=== PATIENT | female | born 1965 | race African-American/Black ===

== ENCOUNTER 2018-11-02 10:04 | Inpatient (IN) | payer MEDICARE, OTHER ==
[~2018-11-02] VITALS: Ht 170.2 cm; Wt 85.7 kg
[~2018-11-02 10:04] MED LIST: ALBU05; ASPI-1158; CARV3.1242; FLUT1DIS IH; NIFE30TA23; OMEP20CA5 PO; PANT20TA3
[2018-11-02] MEDS ORDERED: MAGNESIUM 2 G PREMIX 50 ML IV STA (10:24)
[2018-11-02] MEDS ORDERED: METHYLPREDNISOLONE SOD SUCC 125 MG/2 ML VIAL IV STA (10:24)
[2018-11-02] MEDS ORDERED: ALBUTEROL (0.083%) 2.5MG/3ML NEB HHN STA ×2 (10:24→11:48)
[2018-11-02] MEDS ORDERED: IPRATROPIUM BROMIDE (0.02%) 0.5MG/2.5ML NEB HHN STA ×2 (10:24→11:48)
[2018-11-02 11:14] LABS: BASOPHILS % 0.4 % (0.0-2.0); EOSINOPHILS % 1.7 % (0.0-5.0); HEMATOCRIT. 43.7 % (36.0-48.0); HEMOGLOBIN. 13.8 g/dL (12.0-16.0); LYMPHOCYTES % 18.8 % (20.0-50.0); MEAN CORPUSCULAR HEMOGLOBIN 26.4 pg (28.0-32.0); MEAN CORPUSCULAR VOLUME 83.5 fL (81.0-99.0); MEAN PLATELET VOLUME 8.5 fl (7.4-10.4); MONOCYTES % 9.4 % (2.0-8.0); NEUTROPHILS % 69.7 % (40.0-76.0); PLATELET 221 x1000/uL (130-400); RED BLOOD CELL COUNT 5.23 mill/uL (4.2-5.4); RED CELL DISTRIBUTION WIDTH 14.4 % (11.6-14.6)
[2018-11-02] MEDS ORDERED: LEVOFLOXACIN 500MG PREMIX 100 ML IV ONE (11:15)
[2018-11-02 11:20] LABS: CHLORIDE 99 mEq/L (98-107)
[2018-11-02 11:21] LABS: PARTIAL THROMBOPLASTIN TIME 38.5 sec (23.4-31.0); PROTHROMBIN TIME 10.5 sec (9.6-11.0)
[2018-11-02] MEDS ORDERED: IPRATROPIUM/ALBUTEROL 0.5-3(2.5)MG/3ML NEB INH PRN (11:45)
[2018-11-02] MEDS ORDERED: GUAIFENESIN 200MG/10ML SUGAR FREE UDC PO PRN (11:45)
[2018-11-02] MEDS ORDERED: HYDROCODONE/ACETAMINOPHEN 5/325MG TABLET PO PRN (11:45)
[2018-11-02] MEDS ORDERED: MAGNESIUM/ALUMINUM HYDROXIDE/SIMETHICONE 30ML UDC PO PRN (11:45)
[2018-11-02] MEDS ORDERED: DIPHENHYDRAMINE 50MG/ML VIAL IV PRN (11:45)
[2018-11-02] MEDS ORDERED: CLONIDINE 0.1MG TABLET PO PRN (11:45)
[2018-11-02] MEDS ORDERED: NA PHOS,M-B/NA PHOS,DI-BA ENEMA 118ML PR PRN (11:45)
[2018-11-02] MEDS ORDERED: DOCUSATE SODIUM 100MG CAPSULE PO PRN (11:45)
[2018-11-02] MEDS ORDERED: MORPHINE SULFATE 2 MG/ML CPJ (NOT FOR IM USE) IV PRN (11:45)
[2018-11-02] MEDS ORDERED: ACETAMINOPHEN 325MG TABLET PO PRN (11:45)
[2018-11-02 12:45] VITALS: BP 127/69
[2018-11-02 16:00] VITALS: BP 141/59
[2018-11-02] MEDS: ASPIRIN 81MG EC TABLET PO SCH (16:05)
[2018-11-02] MEDS: METHYLPREDNISOLONE SOD SUCC 40 MG/ML VIAL IV SCH (16:05)
[2018-11-02] MEDS: NIFEDIPINE XL 30MG TAB PO SCH (16:05)
[2018-11-02] MEDS: ENOXAPARIN 40MG/0.4ML SYR SUBCUT SCH (16:06)
[2018-11-02] MEDS: IPRATROPIUM/ALBUTEROL 0.5-3(2.5)MG/3ML NEB HHN SCH ×2 (16:40→20:38)
[2018-11-02 16:43] LABS: CHLORIDE 98 mEq/L (98-107)
[2018-11-02] MEDS ORDERED: MELA10TA SL (16:58)
[2018-11-02] MEDS ORDERED: ALBU18HF2 IH (16:58)
[2018-11-02] MEDS ORDERED: FLUT1DIS3 INH (16:58)
[2018-11-02] MEDS ORDERED: PANT40TA4 PO (16:58)
[2018-11-02] MEDS ORDERED: DILT240C92 MT (16:58)
[2018-11-02] MEDS ORDERED: MAGN500C4 PO (16:58)
[2018-11-02] MEDS ORDERED: CYCL10TA7 PO (16:58)
[2018-11-02] MEDS ORDERED: POTA2TAB18 PO (16:58)
[2018-11-02] MEDS ORDERED: MV-M1TAB57 PO (16:58)
[2018-11-02] MEDS ORDERED: METHYLPREDNISOLONE SOD SUCC 125 MG/2 ML VIAL IV SCH (18:00)
[2018-11-02] MEDS: CYCLOBENZAPRINE 10MG TABLET PO PRN (19:39)
[2018-11-02 20:00] VITALS: BP 125/72
[2018-11-02] MEDS: LORAZEPAM 2MG/ML CPJ IV PRN (21:16)
[2018-11-02] MEDS: GUAIFENESIN 600MG ER TABLET PO SCH (21:16)
[2018-11-03] VITALS (11 sets, daily range): BP systolic 112–163; BP diastolic 58–93
[2018-11-03] MEDS: METHYLPREDNISOLONE SOD SUCC 40 MG/ML VIAL IV SCH ×3 (00:25→17:22)
[2018-11-03] MEDS: IPRATROPIUM/ALBUTEROL 0.5-3(2.5)MG/3ML NEB HHN SCH ×6 (00:34→20:07)
[2018-11-03] MEDS: CYCLOBENZAPRINE 10MG TABLET PO PRN ×2 (05:02→17:27)
[2018-11-03 07:12] LABS: BASOPHILS % 0.1 % (0.0-2.0); HEMATOCRIT. 45.7 % (36.0-48.0); HEMOGLOBIN. 14.3 g/dL (12.0-16.0); LYMPHOCYTES % 9.4 % (20.0-50.0); MEAN CORPUSCULAR HEMOGLOBIN 26.8 pg (28.0-32.0); MEAN CORPUSCULAR VOLUME 85.4 fL (81.0-99.0); NEUTROPHILS % 87.5 % (40.0-76.0); PLATELET 182 x1000/uL (130-400); RED BLOOD CELL COUNT 5.36 mill/uL (4.2-5.4); RED CELL DISTRIBUTION WIDTH 14.6 % (11.6-14.6)
[2018-11-03 07:52] LABS: CHLORIDE 98 mEq/L (98-107)
[2018-11-03 07:59] LABS: LDL CHOLESTEROL 62 mg/dL (5-100)
[2018-11-03 08:00] LABS: HDL CHOLESTEROL 83 mg/dL (40-59)
[2018-11-03] MEDS: ASPIRIN 81MG EC TABLET PO SCH (09:23)
[2018-11-03] MEDS: GUAIFENESIN 600MG ER TABLET PO SCH ×2 (09:24→20:46)
[2018-11-03] MEDS: ENOXAPARIN 40MG/0.4ML SYR SUBCUT SCH (09:24)
[2018-11-03] MEDS: NIFEDIPINE XL 30MG TAB PO SCH (09:24)
[2018-11-03] MEDS ORDERED: LEVOFLOXACIN 500MG PREMIX 100 ML IV SCH (11:00)
[2018-11-03] MEDS ORDERED: METHYLPREDNISOLONE SOD SUCC 125 MG/2 ML VIAL IV NR (13:15)
[2018-11-03] MEDS: DILTIAZEM HCL 180MG CAPSULE CD 24HR PO SCH (13:24)
[2018-11-03 13:54] LABS: BG BASE EXCESS 4.6 mmol/L (-2.0-2.0); BG CARBOXYHEMOGLOBIN 0.5 % (0.5-1.5); BG DEOXYHEMOGLOBIN 7.5 % (0.0-5.0); BG FRACTION INSPIRED OXYGEN 32; BG METHEMOGLOBIN 0.3 % (0.0-1.5); BG OXYGEN SATURATION 92.4 % (92.0-98.5); BG OXYHEMOGLOBIN 91.7 % (94.0-97.0); BG PCO2 59.8 mmHg (35.0-45.0); BG PH 7.346 (7.350-7.450); BG PO2 67.7 mmHg (75.0-100.0); BG SAMPLE SITE RIGHT BRACHIAL; BG TOTAL HEMOGLOBIN 13.8 g/dL (12.0-18.0); BG VENT MODE NASAL CANNULA
[2018-11-03] MEDS: LORAZEPAM 2MG/ML CPJ IV PRN (20:46)
[2018-11-03] MEDS ORDERED: LORAZEPAM 2MG/ML CPJ IV NR (21:30)
[2018-11-03 21:57] LABS: BG BASE EXCESS 2.6 mmol/L (-2.0-2.0); BG BILEVEL POS AIRWAY PRESSURE 15/5; BG CARBOXYHEMOGLOBIN 0.6 % (0.5-1.5); BG DEOXYHEMOGLOBIN 3.6 % (0.0-5.0); BG FRACTION INSPIRED OXYGEN 40; BG HCO3 ACT 32.8 mmol/L (22.0-26.0); BG METHEMOGLOBIN 0.5 % (0.0-1.5); BG OXYGEN SATURATION 96.4 % (92.0-98.5); BG OXYHEMOGLOBIN 95.3 % (94.0-97.0); BG PCO2 79.3 mmHg (35.0-45.0); BG PH 7.234 (7.350-7.450); BG PO2 96.9 mmHg (75.0-100.0); BG SAMPLE SITE RIGHT RADIAL; BG TOTAL HEMOGLOBIN 14.5 g/dL (12.0-18.0); BG VENT MODE MASK - BIPAP
[2018-11-03] MEDS: PROPOFOL 10MG/ML 100ML 100 ML IV PRN (23:04)
[2018-11-04] VITALS (94 sets, daily range): BP systolic 104–148; BP diastolic 19–96
[2018-11-04] MEDS ORDERED: IPRATROPIUM/ALBUTEROL 0.5-3(2.5)MG/3ML NEB HHN SCH
[2018-11-04 00:10] LABS: BG DEOXYHEMOGLOBIN 0.5 % (0.0-5.0); BG FRACTION INSPIRED OXYGEN 60; BG HCO3 ACT 27.7 mmol/L (22.0-26.0); BG METHEMOGLOBIN 0.5 % (0.0-1.5); BG OXYGEN SATURATION 99.5 % (92.0-98.5); BG PCO2 52.7 mmHg (35.0-45.0); BG PH 7.338 (7.350-7.450); BG PO2 298.7 mmHg (75.0-100.0); BG SAMPLE SITE RIGHT BRACHIAL; BG TIDAL VOLUME(mL) 500 mL; BG TOTAL HEMOGLOBIN 13.4 g/dL (12.0-18.0); BG VENT MODE VENT - A/C; BG VENT RATE 18 set
[2018-11-04] MEDS ORDERED: ETOMIDATE 2MG/ML 10ML VIAL IV ONE (00:15)
[2018-11-04] MEDS ORDERED: SUCCINYLCHOLINE CHLORIDE 200MG/10ML IV ONE (00:15)
[2018-11-04] MEDS: IPRATROPIUM/ALBUTEROL 0.5-3(2.5)MG/3ML NEB HHN SCH ×6 (00:36→20:14)
[2018-11-04] MEDS: METHYLPREDNISOLONE SOD SUCC 40 MG/ML VIAL IV SCH ×4 (00:55→23:00)
[2018-11-04] MEDS: DEXT 5%/0.45% NACL 1000ML 1,000 ML IV SCH ×3 (00:56→22:00)
[2018-11-04] MEDS: PROPOFOL 10MG/ML 100ML 100 ML IV PRN ×5 (02:52→22:54)
[2018-11-04 05:55] LABS: BASOPHILS % 0.1 % (0.0-2.0); HEMATOCRIT. 37.9 % (36.0-48.0); HEMOGLOBIN. 12.1 g/dL (12.0-16.0); LYMPHOCYTES % 8.1 % (20.0-50.0); MEAN CORPUSCULAR HEMOGLOBIN 26.6 pg (28.0-32.0); MEAN CORPUSCULAR VOLUME 83.4 fL (81.0-99.0); MEAN PLATELET VOLUME 9.5 fl (7.4-10.4); MONOCYTES % 8.9 % (2.0-8.0); NEUTROPHILS % 82.9 % (40.0-76.0); PLATELET 190 x1000/uL (130-400); RED BLOOD CELL COUNT 4.55 mill/uL (4.2-5.4); RED CELL DISTRIBUTION WIDTH 14.4 % (11.6-14.6)
[2018-11-04 05:57] LABS: CHLORIDE 97 mEq/L (98-107)
[2018-11-04 07:09] LABS: BG BASE EXCESS 8.2 mmol/L (-2.0-2.0); BG CARBOXYHEMOGLOBIN 0.5 % (0.5-1.5); BG DEOXYHEMOGLOBIN 2.6 % (0.0-5.0); BG HCO3 ACT 34.1 mmol/L (22.0-26.0); BG METHEMOGLOBIN 0.3 % (0.0-1.5); BG OXYGEN SATURATION 97.4 % (92.0-98.5); BG OXYHEMOGLOBIN 96.6 % (94.0-97.0); BG PCO2 52.7 mmHg (35.0-45.0); BG PH 7.429 (7.350-7.450); BG PO2 93.4 mmHg (75.0-100.0); BG SAMPLE SITE RIGHT BRACHIAL; BG TIDAL VOLUME(mL) 500 mL; BG TOTAL HEMOGLOBIN 13.1 g/dL (12.0-18.0); BG VENT MODE VENT - A/C; BG VENT RATE 18 set
[2018-11-04] MEDS: ASPIRIN 81MG EC TABLET PO SCH (08:11)
[2018-11-04] MEDS: ENOXAPARIN 40MG/0.4ML SYR SUBCUT SCH (08:11)
[2018-11-04] MEDS: GUAIFENESIN 600MG ER TABLET PO SCH ×2 (08:12→20:27)
[2018-11-04] MEDS: DILTIAZEM HCL 180MG CAPSULE CD 24HR PO SCH (08:12)
[2018-11-04] MEDS: FAMOTIDINE 20MG/2ML VIAL IV SCH ×2 (10:46→20:27)
[2018-11-04] MEDS: LEVOFLOXACIN 500MG PREMIX 100 ML IV SCH (11:48)
[2018-11-05] VITALS (90 sets, daily range): BP systolic 116–162; BP diastolic 46–104
[2018-11-05] MEDS: IPRATROPIUM/ALBUTEROL 0.5-3(2.5)MG/3ML NEB HHN SCH ×7 (00:03→23:14)
[2018-11-05] MEDS: PROPOFOL 10MG/ML 100ML 100 ML IV PRN ×5 (03:41→21:28)
[2018-11-05] MEDS: LORAZEPAM 2MG/ML CPJ IV PRN (08:51)
[2018-11-05] MEDS: DILTIAZEM HCL 180MG CAPSULE CD 24HR PO SCH (09:00)
[2018-11-05] MEDS: DEXT 5%/0.45% NACL 1000ML 1,000 ML IV SCH ×2 (09:07→16:58)
[2018-11-05] MEDS: ASPIRIN 81MG EC TABLET PO SCH (09:11)
[2018-11-05] MEDS: GUAIFENESIN 600MG ER TABLET PO SCH ×2 (09:11→21:24)
[2018-11-05] MEDS: FAMOTIDINE 20MG/2ML VIAL IV SCH ×2 (09:12→21:27)
[2018-11-05] MEDS: ENOXAPARIN 40MG/0.4ML SYR SUBCUT SCH (09:12)
[2018-11-05] MEDS: ONDANSETRON HCL 4MG/2ML INJ IV PRN (09:12)
[2018-11-05] MEDS: METHYLPREDNISOLONE SOD SUCC 40 MG/ML VIAL IV SCH ×2 (09:13→16:58)
[2018-11-05] MEDS: ASPIRIN 81MG TABLET NG SCH (10:00)
[2018-11-05] MEDS: LEVOFLOXACIN 500MG PREMIX 100 ML IV SCH (10:02)
[2018-11-05] MEDS ORDERED: DOCUSATE SODIUM SUGAR FREE 100MG/10ML UDC NG PRN (10:15)
[2018-11-05 13:10] LABS: BG BASE EXCESS 6.4 mmol/L (-2.0-2.0); BG CARBOXYHEMOGLOBIN 0.3 % (0.5-1.5); BG DEOXYHEMOGLOBIN 0.9 % (0.0-5.0); BG HCO3 ACT 30.7 mmol/L (22.0-26.0); BG METHEMOGLOBIN 0.5 % (0.0-1.5); BG OXYGEN SATURATION 99.1 % (92.0-98.5); BG OXYHEMOGLOBIN 98.3 % (94.0-97.0); BG PCO2 42.8 mmHg (35.0-45.0); BG PH 7.474 (7.350-7.450); BG PO2 153.4 mmHg (75.0-100.0); BG SAMPLE SITE RIGHT BRACHIAL; BG TIDAL VOLUME(mL) 500 mL; BG VENT MODE VENT - A/C; BG VENT RATE 16 set
[2018-11-06] VITALS (96 sets, daily range): BP systolic 102–198; BP diastolic 63–148
[2018-11-06] MEDS: METHYLPREDNISOLONE SOD SUCC 40 MG/ML VIAL IV SCH ×3 (00:47→18:47)
[2018-11-06] MEDS: PROPOFOL 10MG/ML 100ML 100 ML IV PRN ×4 (02:40→20:32)
[2018-11-06] MEDS: DEXT 5%/0.45% NACL 1000ML 1,000 ML IV SCH ×2 (02:44→13:04)
[2018-11-06] MEDS: IPRATROPIUM/ALBUTEROL 0.5-3(2.5)MG/3ML NEB HHN SCH ×4 (04:22→16:22)
[2018-11-06 05:32] LABS: BASOPHILS % 0.1 % (0.0-2.0); HEMATOCRIT. 37.7 % (36.0-48.0); HEMOGLOBIN. 12.1 g/dL (12.0-16.0); LYMPHOCYTES % 7.6 % (20.0-50.0); MEAN CORPUSCULAR HEMOGLOBIN 26.6 pg (28.0-32.0); MEAN PLATELET VOLUME 9.7 fl (7.4-10.4); MONOCYTES % 8.6 % (2.0-8.0); NEUTROPHILS % 83.7 % (40.0-76.0); PLATELET 172 x1000/uL (130-400); RED BLOOD CELL COUNT 4.55 mill/uL (4.2-5.4); RED CELL DISTRIBUTION WIDTH 14.4 % (11.6-14.6)
[2018-11-06 05:47] LABS: CHLORIDE 102 mEq/L (98-107)
[2018-11-06 07:34] LABS: BG BASE EXCESS 6.3 mmol/L (-2.0-2.0); BG CARBOXYHEMOGLOBIN 0.3 % (0.5-1.5); BG DEOXYHEMOGLOBIN 1.4 % (0.0-5.0); BG FRACTION INSPIRED OXYGEN 35; BG HCO3 ACT 30.7 mmol/L (22.0-26.0); BG METHEMOGLOBIN 0.4 % (0.0-1.5); BG OXYGEN SATURATION 98.6 % (92.0-98.5); BG OXYHEMOGLOBIN 97.9 % (94.0-97.0); BG PCO2 43.3 mmHg (35.0-45.0); BG PH 7.468 (7.350-7.450); BG PO2 132.4 mmHg (75.0-100.0); BG SAMPLE SITE RIGHT BRACHIAL; BG TIDAL VOLUME(mL) 500 mL; BG TOTAL HEMOGLOBIN 13.2 g/dL (12.0-18.0); BG VENT MODE VENT - A/C; BG VENT RATE 16 set
[2018-11-06] MEDS: FAMOTIDINE 20MG/2ML VIAL IV SCH ×2 (08:57→20:31)
[2018-11-06] MEDS: GUAIFENESIN 600MG ER TABLET PO SCH ×2 (08:57→20:27)
[2018-11-06] MEDS: ASPIRIN 81MG TABLET NG SCH (08:57)
[2018-11-06] MEDS: ENOXAPARIN 40MG/0.4ML SYR SUBCUT SCH (08:58)
[2018-11-06] MEDS: DILTIAZEM HCL 180MG CAPSULE CD 24HR PO SCH (08:58)
[2018-11-06] MEDS: LEVOFLOXACIN 500MG PREMIX 100 ML IV SCH (11:19)
[2018-11-06] MEDS: AZITHROMYCIN 500 MG in DEXT 5% WATER 250 ML IV SCH (13:03)
[2018-11-07] VITALS (93 sets, daily range): BP systolic 83–164; BP diastolic 45–86
[2018-11-07] MEDS: DEXT 5%/0.45% NACL 1000ML 1,000 ML IV SCH ×3 (01:00→19:05)
[2018-11-07] MEDS: METHYLPREDNISOLONE SOD SUCC 40 MG/ML VIAL IV SCH ×2 (01:00→08:46)
[2018-11-07] MEDS: IPRATROPIUM/ALBUTEROL 0.5-3(2.5)MG/3ML NEB HHN SCH ×6 (01:17→20:37)
[2018-11-07] MEDS: PROPOFOL 10MG/ML 100ML 100 ML IV PRN ×2 (02:15→07:45)
[2018-11-07] MEDS: FAMOTIDINE 20MG/2ML VIAL IV SCH ×2 (08:46→20:21)
[2018-11-07] MEDS: GUAIFENESIN 600MG ER TABLET PO SCH ×2 (08:46→20:21)
[2018-11-07] MEDS: ASPIRIN 81MG TABLET NG SCH (08:47)
[2018-11-07] MEDS: DILTIAZEM HCL 180MG CAPSULE CD 24HR PO SCH (08:47)
[2018-11-07] MEDS: ENOXAPARIN 40MG/0.4ML SYR SUBCUT SCH (08:47)
[2018-11-07] MEDS: LEVOFLOXACIN 500MG PREMIX 100 ML IV SCH (10:57)
[2018-11-07] MEDS: FENTANYL CITRATE/PF 500 MCG in SODIUM CHLORIDE 0.9% 40 ML IV PRN ×2 (12:40→18:38)
[2018-11-07] MEDS: MIDAZOLAM HCL 50 MG in DEXTROSE 5% WATER 40 ML IV PRN (12:45)
[2018-11-07] MEDS: AZITHROMYCIN 500 MG in DEXT 5% WATER 250 ML IV SCH (13:46)
[2018-11-07] MEDS ORDERED: NOREPINEPHRINE 8 MG in DEXT 5% WATER 250 ML IV PRN (22:16)
[2018-11-08] VITALS (94 sets, daily range): BP systolic 84–158; BP diastolic 49–100
[2018-11-08] MEDS: IPRATROPIUM/ALBUTEROL 0.5-3(2.5)MG/3ML NEB HHN SCH ×6 (00:40→20:30)
[2018-11-08] MEDS: MIDAZOLAM HCL 50 MG in DEXTROSE 5% WATER 40 ML IV PRN ×2 (01:31→21:02)
[2018-11-08] MEDS: DEXT 5%/0.45% NACL 1000ML 1,000 ML IV SCH ×2 (04:28→14:56)
[2018-11-08 05:44] LABS: MEAN CORPUSCULAR HEMOGLOBIN 26.5 pg (28.0-32.0); MEAN PLATELET VOLUME 10.2 fl (7.4-10.4); PLATELET 171 x1000/uL (130-400); RED BLOOD CELL COUNT 4.53 mill/uL (4.2-5.4); RED CELL DISTRIBUTION WIDTH 14.6 % (11.6-14.6)
[2018-11-08 06:07] LABS: CHLORIDE 105 mEq/L (98-107)
[2018-11-08 07:51] LABS: BG BASE EXCESS 6.3 mmol/L (-2.0-2.0); BG CARBOXYHEMOGLOBIN 0.1 % (0.5-1.5); BG DEOXYHEMOGLOBIN 1.7 % (0.0-5.0); BG FRACTION INSPIRED OXYGEN 35; BG HCO3 ACT 32.6 mmol/L (22.0-26.0); BG METHEMOGLOBIN 0.2 % (0.0-1.5); BG OXYGEN SATURATION 98.3 % (92.0-98.5); BG PCO2 54.6 mmHg (35.0-45.0); BG PH 7.394 (7.350-7.450); BG PO2 121.8 mmHg (75.0-100.0); BG PRESSURE SUPPORT 14; BG SAMPLE SITE RIGHT BRACHIAL; BG TIDAL VOLUME(mL) 550 mL; BG TOTAL HEMOGLOBIN 12.5 g/dL (12.0-18.0); BG VENT MODE VENT - SIMV; BG VENT RATE 12 set
[2018-11-08] MEDS ORDERED: ACETAMINOPHEN 650MG/20.3ML UDC NG PRN (08:00)
[2018-11-08] MEDS: GUAIFENESIN 600MG ER TABLET PO SCH (09:00)
[2018-11-08] MEDS: ASPIRIN 81MG TABLET NG SCH ×2 (09:00→13:09)
[2018-11-08] MEDS: DILTIAZEM HCL 180MG CAPSULE CD 24HR PO SCH (09:00)
[2018-11-08] MEDS: ENOXAPARIN 40MG/0.4ML SYR SUBCUT SCH (09:00)
[2018-11-08] MEDS: FAMOTIDINE 20MG/2ML VIAL IV SCH ×2 (09:14→21:08)
[2018-11-08] MEDS: FENTANYL CITRATE/PF 500 MCG in SODIUM CHLORIDE 0.9% 40 ML IV PRN (09:18)
[2018-11-08] MEDS: LEVOFLOXACIN 500MG PREMIX 100 ML IV SCH (12:05)
[2018-11-08] MEDS: METHYLPREDNISOLONE SOD SUCC 40 MG/ML VIAL IV SCH ×2 (13:41→21:08)
[2018-11-08] MEDS: DEXT 5%/0.9% NACL 1,000 ML IV SCH ×2 (15:16→23:24)
[2018-11-08] MEDS: SODIUM CHLORIDE 0.9% 250 ML IV NR ×2 (15:16→15:56)
[2018-11-08 15:24] LABS: PLATELET ESTIMATE NORMAL
[2018-11-08] MEDS: BUDESONIDE 0.5MG/2ML NEB HHN SCH ×2 (16:08→20:29)
[2018-11-08] MEDS ORDERED: NOREPINEPHRINE 8 MG in DEXTROSE 5% WATER 250 ML IV PRN (18:00)
[2018-11-08] MEDS: DILTIAZEM HCL 60MG TABLET NG SCH (21:09)
[2018-11-09] VITALS (92 sets, daily range): BP systolic 97–154; BP diastolic 55–103
[2018-11-09] MEDS: IPRATROPIUM/ALBUTEROL 0.5-3(2.5)MG/3ML NEB HHN SCH ×6 (00:16→20:55)
[2018-11-09] MEDS: METHYLPREDNISOLONE SOD SUCC 40 MG/ML VIAL IV SCH ×2 (04:58→16:56)
[2018-11-09] MEDS: DILTIAZEM HCL 60MG TABLET NG SCH ×3 (05:04→21:20)
[2018-11-09 05:31] LABS: HEMOGLOBIN. 12.7 g/dL (12.0-16.0); MEAN CORPUSCULAR HEMOGLOBIN 26.2 pg (28.0-32.0); MEAN CORPUSCULAR VOLUME 84.9 fL (81.0-99.0); MEAN PLATELET VOLUME 10.2 fl (7.4-10.4); PLATELET 178 x1000/uL (130-400); RED BLOOD CELL COUNT 4.83 mill/uL (4.2-5.4); RED CELL DISTRIBUTION WIDTH 14.3 % (11.6-14.6)
[2018-11-09 05:39] LABS: CHLORIDE 103 mEq/L (98-107)
[2018-11-09] MEDS: FENTANYL CITRATE/PF 500 MCG in SODIUM CHLORIDE 0.9% 40 ML IV PRN (06:00)
[2018-11-09 06:03] LABS: PROTHROMBIN TIME 10.5 sec (9.6-11.0)
[2018-11-09] MEDS: DEXT 5%/0.9% NACL 1,000 ML IV SCH ×3 (07:02→23:33)
[2018-11-09] MEDS: BUDESONIDE 0.5MG/2ML NEB HHN SCH ×2 (08:27→20:55)
[2018-11-09 08:39] LABS: BG BASE EXCESS 6.5 mmol/L (-2.0-2.0); BG CARBOXYHEMOGLOBIN 0.3 % (0.5-1.5); BG DEOXYHEMOGLOBIN 3.3 % (0.0-5.0); BG FRACTION INSPIRED OXYGEN 35; BG HCO3 ACT 34.3 mmol/L (22.0-26.0); BG METHEMOGLOBIN 0.3 % (0.0-1.5); BG OXYGEN SATURATION 96.7 % (92.0-98.5); BG OXYHEMOGLOBIN 96.1 % (94.0-97.0); BG PCO2 64.4 mmHg (35.0-45.0); BG PH 7.344 (7.350-7.450); BG PO2 90.3 mmHg (75.0-100.0); BG PRESSURE SUPPORT 14; BG SAMPLE SITE RIGHT RADIAL; BG TIDAL VOLUME(mL) 550 mL; BG VENT MODE VENT - SIMV; BG VENT RATE 12 set
[2018-11-09] MEDS: FAMOTIDINE 20MG/2ML VIAL IV SCH ×2 (09:07→21:20)
[2018-11-09] MEDS: LEVOFLOXACIN 500MG PREMIX 100 ML IV SCH (11:05)
[2018-11-09] MEDS ORDERED: FENTANYL CITRATE/PF 50MCG/ML 5ML VIAL ONE (12:36)
[2018-11-09] MEDS ORDERED: VECURONIUM BROMIDE 10 MG/VIAL IV ONE (12:56)
[2018-11-09] MEDS: HYDROMORPHONE HCL/PF 2MG/ML CPJ IV PRN ×2 (14:45→19:49)
[2018-11-09 15:57] LABS: PLATELET ESTIMATE NORMAL
[2018-11-09] MEDS: LORAZEPAM 2MG/ML CPJ IV PRN (18:34)
[2018-11-10] VITALS (55 sets, daily range): BP systolic 94–137; BP diastolic 51–79
[2018-11-10] MEDS: IPRATROPIUM/ALBUTEROL 0.5-3(2.5)MG/3ML NEB HHN SCH ×6 (00:26→20:12)
[2018-11-10] MEDS: HYDROMORPHONE HCL/PF 2MG/ML CPJ IV PRN ×4 (05:13→18:00)
[2018-11-10] MEDS: DILTIAZEM HCL 60MG TABLET NG SCH ×3 (05:14→21:22)
[2018-11-10 05:52] LABS: BASOPHILS % 0.1 % (0.0-2.0); HEMATOCRIT. 40.8 % (36.0-48.0); HEMOGLOBIN. 12.8 g/dL (12.0-16.0); LYMPHOCYTES % 9.9 % (20.0-50.0); MEAN CORPUSCULAR HEMOGLOBIN 26.4 pg (28.0-32.0); MEAN CORPUSCULAR VOLUME 83.9 fL (81.0-99.0); MEAN PLATELET VOLUME 9.9 fl (7.4-10.4); MONOCYTES % 14.6 % (2.0-8.0); NEUTROPHILS % 75.4 % (40.0-76.0); PLATELET 192 x1000/uL (130-400); RED BLOOD CELL COUNT 4.86 mill/uL (4.2-5.4); RED CELL DISTRIBUTION WIDTH 14.5 % (11.6-14.6)
[2018-11-10 06:01] LABS: CHLORIDE 106 mEq/L (98-107)
[2018-11-10] MEDS: DEXT 5%/0.9% NACL 1,000 ML IV SCH ×3 (07:02→23:29)
[2018-11-10] MEDS: BUDESONIDE 0.5MG/2ML NEB HHN SCH (08:08)
[2018-11-10 08:23] LABS: BG CARBOXYHEMOGLOBIN 0.5 % (0.5-1.5); BG DEOXYHEMOGLOBIN 2.4 % (0.0-5.0); BG FRACTION INSPIRED OXYGEN 35; BG HCO3 ACT 27.7 mmol/L (22.0-26.0); BG METHEMOGLOBIN 0.4 % (0.0-1.5); BG OXYGEN SATURATION 97.6 % (92.0-98.5); BG OXYHEMOGLOBIN 96.7 % (94.0-97.0); BG PH 7.427 (7.350-7.450); BG PO2 99.1 mmHg (75.0-100.0); BG SAMPLE SITE LEFT BRACHIAL; BG TIDAL VOLUME(mL) 550 mL; BG TOTAL HEMOGLOBIN 12.5 g/dL (12.0-18.0); BG VENT MODE VENT - A/C; BG VENT RATE 14 set
[2018-11-10] MEDS: METHYLPREDNISOLONE SOD SUCC 40 MG/ML VIAL IV SCH ×2 (09:12→17:05)
[2018-11-10] MEDS: FAMOTIDINE 20MG/2ML VIAL IV SCH ×2 (09:12→21:21)
[2018-11-10] MEDS ORDERED: FENTANYL CITRATE/PF 50MCG/ML 2ML VIAL ONE (11:16)
[2018-11-10] MEDS ORDERED: MIDAZOLAM HCL 5 MG/5 ML VIAL ONE (11:16)
[2018-11-10] MEDS ORDERED: DIPHENHYDRAMINE 50MG/ML VIAL ONE (11:17)
[2018-11-10] MEDS: LEVOFLOXACIN 500MG PREMIX 100 ML IV SCH (11:30)
[2018-11-10] MEDS ORDERED: MIDAZOLAM HCL 5 MG/5 ML VIAL IV NR ×3 (12:00→12:30)
[2018-11-10] MEDS ORDERED: MIDAZOLAM HCL 2 MG/2 ML VIAL ONE ×2 (12:28→12:31)
[2018-11-10] MEDS: METOCLOPRAMIDE HCL 10MG/2ML VIAL IV SCH ×2 (17:05→23:29)
[2018-11-11] VITALS (18 sets, daily range): BP systolic 99–165; BP diastolic 58–86
[2018-11-11] MEDS: IPRATROPIUM/ALBUTEROL 0.5-3(2.5)MG/3ML NEB HHN SCH ×6 (00:32→20:07)
[2018-11-11] MEDS: BUDESONIDE 0.5MG/2ML NEB HHN SCH ×3 (00:35→20:07)
[2018-11-11] MEDS: HYDROMORPHONE HCL/PF 2MG/ML CPJ IV PRN (00:51)
[2018-11-11] MEDS: METOCLOPRAMIDE HCL 10MG/2ML VIAL IV SCH ×3 (06:17→17:16)
[2018-11-11] MEDS: DILTIAZEM HCL 60MG TABLET NG SCH ×3 (06:17→21:20)
[2018-11-11 08:16] LABS: HEMATOCRIT. 35.6 % (36.0-48.0); HEMOGLOBIN. 11.1 g/dL (12.0-16.0); MEAN CORPUSCULAR HEMOGLOBIN 26.2 pg (28.0-32.0); MEAN PLATELET VOLUME 9.5 fl (7.4-10.4); PLATELET 215 x1000/uL (130-400); RED BLOOD CELL COUNT 4.24 mill/uL (4.2-5.4); RED CELL DISTRIBUTION WIDTH 14.7 % (11.6-14.6)
[2018-11-11 08:20] LABS: CHLORIDE 107 mEq/L (98-107)
[2018-11-11] MEDS ORDERED: METHYLPREDNISOLONE SOD SUCC 40 MG/ML VIAL IV SCH (09:00)
[2018-11-11] MEDS: FAMOTIDINE 20MG/2ML VIAL IV SCH ×2 (10:02→21:15)
[2018-11-11] MEDS: DEXT 5%/0.9% NACL 1,000 ML IV SCH (10:06)
[2018-11-11] MEDS: ENOXAPARIN 40MG/0.4ML SYR SUBCUT SCH (11:27)
[2018-11-11] MEDS: ASPIRIN 81MG TABLET NG SCH (11:28)
[2018-11-11] MEDS: ONDANSETRON HCL 4MG/2ML INJ IV PRN ×2 (11:44→16:12)
[2018-11-11 13:30] LABS: PLATELET ESTIMATE NORMAL
[2018-11-11] MEDS: METHYLPREDNISOLONE SOD SUCC 40 MG/ML VIAL IV SCH (17:16)
[2018-11-11] MEDS: LORAZEPAM 2MG/ML CPJ IV PRN (18:19)
[2018-11-12] VITALS (10 sets, daily range): BP systolic 117–149; BP diastolic 66–85
[2018-11-12] MEDS: IPRATROPIUM/ALBUTEROL 0.5-3(2.5)MG/3ML NEB HHN SCH ×6 (00:13→20:46)
[2018-11-12] MEDS: ACETYLCYSTEINE 100MG/ML 10% VIAL 4ML INH SCH ×4 (00:14→23:50)
[2018-11-12] MEDS: METOCLOPRAMIDE HCL 10MG/2ML VIAL IV SCH ×3 (01:39→12:11)
[2018-11-12] MEDS: METHYLPREDNISOLONE SOD SUCC 40 MG/ML VIAL IV SCH ×2 (01:55→08:40)
[2018-11-12] MEDS: DILTIAZEM HCL 60MG TABLET NG SCH ×4 (06:00→22:00)
[2018-11-12] MEDS: BUDESONIDE 0.5MG/2ML NEB HHN SCH ×2 (07:29→19:40)
[2018-11-12 07:49] LABS: HEMATOCRIT. 35.5 % (36.0-48.0); HEMOGLOBIN. 11.2 g/dL (12.0-16.0); MEAN CORPUSCULAR HEMOGLOBIN 26.1 pg (28.0-32.0); MEAN CORPUSCULAR VOLUME 83.2 fL (81.0-99.0); MEAN PLATELET VOLUME 9.6 fl (7.4-10.4); PLATELET 235 x1000/uL (130-400); RED BLOOD CELL COUNT 4.27 mill/uL (4.2-5.4); RED CELL DISTRIBUTION WIDTH 14.5 % (11.6-14.6)
[2018-11-12 08:04] LABS: CHLORIDE 109 mEq/L (98-107)
[2018-11-12] MEDS ORDERED: LIDOCAINE HCL/PF 1% 2ML VIAL ONE (08:38)
[2018-11-12] MEDS: FAMOTIDINE 20MG/2ML VIAL IV SCH ×2 (08:40→21:50)
[2018-11-12] MEDS: ENOXAPARIN 40MG/0.4ML SYR SUBCUT SCH (08:41)
[2018-11-12 08:55] LABS: BG CARBOXYHEMOGLOBIN 0.1 % (0.5-1.5); BG DEOXYHEMOGLOBIN 5.7 % (0.0-5.0); BG FRACTION INSPIRED OXYGEN 35; BG HCO3 ACT 32.9 mmol/L (22.0-26.0); BG METHEMOGLOBIN 0.2 % (0.0-1.5); BG OXYGEN SATURATION 94.3 % (92.0-98.5); BG PH 7.371 (7.350-7.450); BG PO2 75.4 mmHg (75.0-100.0); BG PRESSURE SUPPORT 12; BG SAMPLE SITE RIGHT RADIAL; BG TIDAL VOLUME(mL) 550 mL; BG TOTAL HEMOGLOBIN 12.7 g/dL (12.0-18.0); BG VENT MODE VENT - SIMV; BG VENT RATE 8 set
[2018-11-12] MEDS: DEXT 5%/0.9% NACL 1,000 ML IV SCH (08:58)
[2018-11-12] MEDS: ASPIRIN 81MG TABLET NG SCH (09:00)
[2018-11-12] MEDS ORDERED: DOCUSATE SODIUM SUGAR FREE 100MG/10ML UDC GT PRN (10:15)
[2018-11-12] MEDS ORDERED: BISACODYL 10MG SUPP PR NR (10:15)
[2018-11-12] MEDS: DEXTROSE 5% WATER 1,000 ML IV SCH ×2 (10:53→21:50)
[2018-11-12 13:26] LABS: PLATELET ESTIMATE NORMAL
[2018-11-12] MEDS ORDERED: METHYLPREDNISOLONE SOD SUCC 40 MG/ML VIAL IV SCH (17:00)
[2018-11-13] VITALS (7 sets, daily range): BP systolic 123–144; BP diastolic 67–97
[2018-11-13] MEDS: IPRATROPIUM/ALBUTEROL 0.5-3(2.5)MG/3ML NEB HHN SCH ×6 (00:36→19:49)
[2018-11-13] MEDS: ONDANSETRON HCL 4MG/2ML INJ IV PRN ×3 (01:00→20:52)
[2018-11-13] MEDS: METOCLOPRAMIDE HCL 10MG/2ML VIAL IV SCH ×4 (06:53→17:01)
[2018-11-13] MEDS: DILTIAZEM HCL 60MG TABLET NG SCH ×3 (06:53→21:40)
[2018-11-13] MEDS: DEXTROSE 5% WATER 1,000 ML IV SCH ×3 (06:54→18:25)
[2018-11-13 07:00] LABS: BASOPHILS % 0.3 % (0.0-2.0); CHLORIDE 102 mEq/L (98-107); EOSINOPHILS % 0.3 % (0.0-5.0); HEMATOCRIT. 37.3 % (36.0-48.0); HEMOGLOBIN. 11.6 g/dL (12.0-16.0); LYMPHOCYTES % 18.5 % (20.0-50.0); MEAN CORPUSCULAR HEMOGLOBIN 25.9 pg (28.0-32.0); MEAN CORPUSCULAR VOLUME 83.3 fL (81.0-99.0); MEAN PLATELET VOLUME 9.5 fl (7.4-10.4); MONOCYTES % 14.7 % (2.0-8.0); NEUTROPHILS % 66.2 % (40.0-76.0); PLATELET 259 x1000/uL (130-400); RED BLOOD CELL COUNT 4.47 mill/uL (4.2-5.4); RED CELL DISTRIBUTION WIDTH 14.2 % (11.6-14.6)
[2018-11-13] MEDS: ENOXAPARIN 40MG/0.4ML SYR SUBCUT SCH (08:15)
[2018-11-13] MEDS: ASPIRIN 81MG TABLET NG SCH (08:15)
[2018-11-13] MEDS: FAMOTIDINE 20MG/2ML VIAL IV SCH ×2 (08:15→20:17)
[2018-11-13] MEDS: ACETYLCYSTEINE 100MG/ML 10% VIAL 4ML INH SCH ×2 (08:24→15:51)
[2018-11-13] MEDS: BUDESONIDE 0.5MG/2ML NEB HHN SCH ×2 (08:24→19:48)
[2018-11-13] MEDS ORDERED: POTASSIUM CHLORIDE 20MEQ/PACKET PO SCH (12:45)
[2018-11-13] MEDS: DOCUSATE SODIUM SUGAR FREE 100MG/10ML UDC GT SCH (17:01)
[2018-11-13] MEDS: LORAZEPAM 2MG/ML CPJ IV PRN (20:52)
[2018-11-14] VITALS (12 sets, daily range): BP systolic 101–146; BP diastolic 38–88
[2018-11-14] MEDS: ACETYLCYSTEINE 100MG/ML 10% VIAL 4ML INH SCH ×4 (00:03→23:44)
[2018-11-14] MEDS: IPRATROPIUM/ALBUTEROL 0.5-3(2.5)MG/3ML NEB HHN SCH ×7 (00:04→23:44)
[2018-11-14] MEDS: METOCLOPRAMIDE HCL 10MG/2ML VIAL IV SCH ×4 (01:02→17:28)
[2018-11-14] MEDS: DILTIAZEM HCL 60MG TABLET NG SCH ×3 (05:10→21:58)
[2018-11-14] MEDS: BUDESONIDE 0.5MG/2ML NEB HHN SCH (07:56)
[2018-11-14] MEDS: DOCUSATE SODIUM SUGAR FREE 100MG/10ML UDC GT SCH ×2 (08:47→17:28)
[2018-11-14] MEDS: ASPIRIN 81MG TABLET NG SCH (08:47)
[2018-11-14] MEDS: FAMOTIDINE 20MG/2ML VIAL IV SCH ×2 (08:48→20:42)
[2018-11-14] MEDS: METHYLPREDNISOLONE SOD SUCC 40 MG/ML VIAL IV SCH (08:48)
[2018-11-14] MEDS: ENOXAPARIN 30MG/0.3ML SYR SUBCUT SCH ×2 (08:49→20:44)
[2018-11-14 08:50] LABS: HEMATOCRIT 36.4 % (36.0-48.0); HEMOGLOBIN 11.6 g/dL (12.0-16.0); MEAN CORPUSCULAR HEMOGLOBIN 26.3 pg (28.0-32.0); MEAN CORPUSCULAR VOLUME 82.7 fL (81.0-99.0); PLATELET 257 x1000/uL (130-400); RED CELL DISTRIBUTION WIDTH 13.7 % (11.6-14.6)
[2018-11-14 08:53] LABS: CHLORIDE 97 mEq/L (98-107)
[2018-11-14] MEDS: QUETIAPINE FUMARATE 25MG TABLET NG SCH ×2 (11:15→20:42)
[2018-11-14] MEDS: LORAZEPAM 2MG/ML CPJ IV PRN ×2 (11:35→15:39)
[2018-11-14] MEDS: ONDANSETRON HCL 4MG/2ML INJ IV PRN ×2 (11:35→17:28)
[2018-11-14] MEDS: DEXTROSE 5% WATER 1,000 ML IV SCH ×2 (11:41→20:44)
[2018-11-14] MEDS ORDERED: BISACODYL 10MG SUPP PR SCH (13:30)
[2018-11-14] MEDS ORDERED: SORBITOL 70% SOLN 30ML PO SCH (13:30)
[2018-11-15] VITALS (13 sets, daily range): BP systolic 30–117; BP diastolic 16–75
[2018-11-15] MEDS: ACETYLCYSTEINE 100MG/ML 10% VIAL 4ML INH SCH ×3 (00:20→16:55)
[2018-11-15] MEDS: LORAZEPAM 2MG/ML CPJ IV PRN ×4 (01:43→21:36)
[2018-11-15] MEDS: ONDANSETRON HCL 4MG/2ML INJ IV PRN ×2 (01:44→05:54)
[2018-11-15] MEDS: IPRATROPIUM/ALBUTEROL 0.5-3(2.5)MG/3ML NEB HHN SCH ×4 (04:05→20:23)
[2018-11-15] MEDS: DILTIAZEM HCL 60MG TABLET NG SCH ×3 (05:33→21:36)
[2018-11-15] MEDS: METOCLOPRAMIDE HCL 10MG/2ML VIAL IV SCH ×4 (05:54→16:57)
[2018-11-15 07:05] LABS: CHLORIDE 99 mEq/L (98-107)
[2018-11-15 07:13] LABS: BASOPHILS % 0.2 % (0.0-2.0); EOSINOPHILS % 1.9 % (0.0-5.0); HEMATOCRIT. 34.8 % (36.0-48.0); HEMOGLOBIN. 11.2 g/dL (12.0-16.0); LYMPHOCYTES % 15.4 % (20.0-50.0); MEAN CORPUSCULAR HEMOGLOBIN 26.5 pg (28.0-32.0); MEAN CORPUSCULAR VOLUME 82.9 fL (81.0-99.0); MEAN PLATELET VOLUME 9.3 fl (7.4-10.4); MONOCYTES % 13.6 % (2.0-8.0); NEUTROPHILS % 68.9 % (40.0-76.0); PLATELET 231 x1000/uL (130-400); RED CELL DISTRIBUTION WIDTH 13.7 % (11.6-14.6)
[2018-11-15] MEDS: DEXTROSE 5% WATER 1,000 ML IV SCH ×2 (07:42→16:54)
[2018-11-15] MEDS: DOCUSATE SODIUM SUGAR FREE 100MG/10ML UDC GT SCH ×2 (08:22→16:21)
[2018-11-15] MEDS: METHYLPREDNISOLONE SOD SUCC 40 MG/ML VIAL IV SCH (08:23)
[2018-11-15] MEDS: ENOXAPARIN 30MG/0.3ML SYR SUBCUT SCH ×2 (08:23→21:36)
[2018-11-15] MEDS: ASPIRIN 81MG TABLET NG SCH (08:23)
[2018-11-15] MEDS: FAMOTIDINE 20MG/2ML VIAL IV SCH ×2 (08:24→21:37)
[2018-11-15] MEDS: QUETIAPINE FUMARATE 25MG TABLET NG SCH ×2 (08:24→21:35)
[2018-11-16] VITALS (11 sets, daily range): BP systolic 91–118; BP diastolic 48–75
[2018-11-16] MEDS: ACETYLCYSTEINE 100MG/ML 10% VIAL 4ML INH SCH ×2 (00:15→07:26)
[2018-11-16] MEDS: IPRATROPIUM/ALBUTEROL 0.5-3(2.5)MG/3ML NEB HHN SCH ×6 (00:19→20:09)
[2018-11-16] MEDS: DILTIAZEM HCL 60MG TABLET NG SCH ×3 (05:06→22:50)
[2018-11-16] MEDS: DEXTROSE 5% WATER 1,000 ML IV SCH ×3 (05:19→17:11)
[2018-11-16] MEDS: METOCLOPRAMIDE HCL 10MG/2ML VIAL IV SCH ×4 (05:19→17:12)
[2018-11-16 06:44] LABS: BASOPHILS % 0.1 % (0.0-2.0); EOSINOPHILS % 1.5 % (0.0-5.0); HEMATOCRIT. 29.2 % (36.0-48.0); HEMOGLOBIN. 9.4 g/dL (12.0-16.0); LYMPHOCYTES % 14.3 % (20.0-50.0); MEAN CORPUSCULAR HEMOGLOBIN 26.9 pg (28.0-32.0); MEAN PLATELET VOLUME 9.5 fl (7.4-10.4); MONOCYTES % 14.1 % (2.0-8.0); PLATELET 203 x1000/uL (130-400); RED BLOOD CELL COUNT 3.51 mill/uL (4.2-5.4); RED CELL DISTRIBUTION WIDTH 13.6 % (11.6-14.6)
[2018-11-16 07:42] LABS: CHLORIDE 102 mEq/L (98-107)
[2018-11-16] MEDS: ASPIRIN 81MG TABLET NG SCH (08:19)
[2018-11-16] MEDS: FAMOTIDINE 20MG/2ML VIAL IV SCH ×2 (08:19→22:50)
[2018-11-16] MEDS: DOCUSATE SODIUM SUGAR FREE 100MG/10ML UDC GT SCH ×2 (08:19→17:11)
[2018-11-16] MEDS: ENOXAPARIN 30MG/0.3ML SYR SUBCUT SCH ×2 (08:20→22:51)
[2018-11-16] MEDS: QUETIAPINE FUMARATE 25MG TABLET NG SCH ×2 (08:20→22:51)
[2018-11-16] MEDS ORDERED: PREDNISONE 20MG TABLET PO SCH (09:00)
[2018-11-16] MEDS: LORAZEPAM 2MG/ML CPJ IV PRN (09:43)
[2018-11-16] MEDS: ONDANSETRON HCL 4MG/2ML INJ IV PRN (23:13)
[2018-11-17] VITALS (18 sets, daily range): BP systolic 79–146; BP diastolic 42–80
[2018-11-17] MEDS: IPRATROPIUM/ALBUTEROL 0.5-3(2.5)MG/3ML NEB HHN SCH ×7 (00:12→23:52)
[2018-11-17] MEDS: DEXTROSE 5% WATER 1,000 ML IV SCH ×3 (05:03→18:56)
[2018-11-17 06:37] LABS: CHLORIDE 101 mEq/L (98-107)
[2018-11-17 06:48] LABS: BASOPHILS % 0.1 % (0.0-2.0); EOSINOPHILS % 2.4 % (0.0-5.0); HEMATOCRIT. 30.5 % (36.0-48.0); HEMOGLOBIN. 9.8 g/dL (12.0-16.0); LYMPHOCYTES % 15.4 % (20.0-50.0); MEAN CORPUSCULAR HEMOGLOBIN 26.9 pg (28.0-32.0); MEAN CORPUSCULAR VOLUME 83.7 fL (81.0-99.0); MEAN PLATELET VOLUME 9.7 fl (7.4-10.4); MONOCYTES % 13.4 % (2.0-8.0); NEUTROPHILS % 68.7 % (40.0-76.0); PLATELET 201 x1000/uL (130-400); RED BLOOD CELL COUNT 3.64 mill/uL (4.2-5.4); RED CELL DISTRIBUTION WIDTH 13.9 % (11.6-14.6)
[2018-11-17] MEDS ORDERED: PREDNISONE 10MG TABLET PO SCH (09:00)
[2018-11-17] MEDS: DOCUSATE SODIUM SUGAR FREE 100MG/10ML UDC GT SCH ×2 (09:00→17:00)
[2018-11-17] MEDS ORDERED: POTASSIUM CHLORIDE 20MEQ TABLET SR PO SCH (10:00)
[2018-11-17] MEDS: ASPIRIN 81MG TABLET NG SCH (10:15)
[2018-11-17] MEDS: QUETIAPINE FUMARATE 25MG TABLET NG SCH ×2 (10:15→20:55)
[2018-11-17] MEDS: FAMOTIDINE 20MG/2ML VIAL IV SCH ×2 (10:15→20:55)
[2018-11-17] MEDS: ENOXAPARIN 30MG/0.3ML SYR SUBCUT SCH ×2 (10:55→20:55)
[2018-11-17] MEDS: METOCLOPRAMIDE HCL 10MG/2ML VIAL IV SCH ×2 (13:03→18:55)
[2018-11-17] MEDS: DILTIAZEM HCL 60MG TABLET NG SCH ×2 (13:03→20:56)
[2018-11-17] MEDS: LORAZEPAM 2MG/ML CPJ IV PRN (13:03)
[2018-11-17] MEDS: SIMETHICONE 80MG TABLET CHEW PO PRN (18:55)
[2018-11-18] VITALS (20 sets, daily range): BP systolic 96–154; BP diastolic 50–94
[2018-11-18] MEDS: METOCLOPRAMIDE HCL 10MG/2ML VIAL IV SCH ×5 (00:38→23:27)
[2018-11-18] MEDS: IPRATROPIUM/ALBUTEROL 0.5-3(2.5)MG/3ML NEB HHN SCH ×5 (03:58→20:45)
[2018-11-18] MEDS: DILTIAZEM HCL 60MG TABLET NG SCH ×3 (04:51→20:20)
[2018-11-18] MEDS: DEXTROSE 5% WATER 1,000 ML IV SCH ×3 (07:03→23:28)
[2018-11-18 07:57] LABS: BASOPHILS % 0.2 % (0.0-2.0); EOSINOPHILS % 2.4 % (0.0-5.0); LYMPHOCYTES % 14.7 % (20.0-50.0); MEAN CORPUSCULAR HEMOGLOBIN 26.4 pg (28.0-32.0); MEAN CORPUSCULAR VOLUME 84.6 fL (81.0-99.0); MEAN PLATELET VOLUME 9.9 fl (7.4-10.4); MONOCYTES % 13.1 % (2.0-8.0); NEUTROPHILS % 69.6 % (40.0-76.0); PLATELET 199 x1000/uL (130-400); RED BLOOD CELL COUNT 3.78 mill/uL (4.2-5.4); RED CELL DISTRIBUTION WIDTH 13.7 % (11.6-14.6)
[2018-11-18 08:00] LABS: CHLORIDE 102 mEq/L (98-107)
[2018-11-18] MEDS: ASPIRIN 81MG TABLET NG SCH (08:18)
[2018-11-18] MEDS: QUETIAPINE FUMARATE 25MG TABLET NG SCH ×2 (08:18→20:19)
[2018-11-18] MEDS: SIMETHICONE 80MG TABLET CHEW PO PRN (08:18)
[2018-11-18] MEDS: LORAZEPAM 2MG/ML CPJ IV PRN ×2 (08:18→18:23)
[2018-11-18] MEDS: PREDNISONE 20MG TABLET GT SCH (08:18)
[2018-11-18] MEDS: DOCUSATE SODIUM SUGAR FREE 100MG/10ML UDC GT SCH ×2 (08:18→17:00)
[2018-11-18] MEDS: FAMOTIDINE 20MG/2ML VIAL IV SCH ×2 (08:19→20:18)
[2018-11-18] MEDS: ENOXAPARIN 30MG/0.3ML SYR SUBCUT SCH ×2 (08:44→20:18)
[2018-11-19] VITALS (12 sets, daily range): BP systolic 95–136; BP diastolic 57–78
[2018-11-19] MEDS: IPRATROPIUM/ALBUTEROL 0.5-3(2.5)MG/3ML NEB HHN SCH ×6 (00:38→20:25)
[2018-11-19] MEDS: DILTIAZEM HCL 60MG TABLET NG SCH ×3 (05:15→21:48)
[2018-11-19] MEDS: METOCLOPRAMIDE HCL 10MG/2ML VIAL IV SCH ×3 (05:15→17:20)
[2018-11-19] MEDS: LORAZEPAM 2MG/ML CPJ IV PRN ×3 (05:16→19:36)
[2018-11-19 06:10] LABS: BASOPHILS % 0.3 % (0.0-2.0); EOSINOPHILS % 2.6 % (0.0-5.0); HEMATOCRIT. 30.1 % (36.0-48.0); HEMOGLOBIN. 9.6 g/dL (12.0-16.0); LYMPHOCYTES % 13.5 % (20.0-50.0); MEAN CORPUSCULAR HEMOGLOBIN 26.8 pg (28.0-32.0); MEAN PLATELET VOLUME 10.1 fl (7.4-10.4); MONOCYTES % 11.8 % (2.0-8.0); NEUTROPHILS % 71.8 % (40.0-76.0); PLATELET 179 x1000/uL (130-400); RED BLOOD CELL COUNT 3.58 mill/uL (4.2-5.4); RED CELL DISTRIBUTION WIDTH 13.7 % (11.6-14.6)
[2018-11-19 06:29] LABS: CHLORIDE 101 mEq/L (98-107)
[2018-11-19] MEDS: ENOXAPARIN 30MG/0.3ML SYR SUBCUT SCH (08:29)
[2018-11-19] MEDS: QUETIAPINE FUMARATE 25MG TABLET NG SCH ×2 (08:29→21:48)
[2018-11-19] MEDS: PREDNISONE 20MG TABLET GT SCH (08:29)
[2018-11-19] MEDS: ASPIRIN 81MG TABLET NG SCH (08:29)
[2018-11-19] MEDS: DOCUSATE SODIUM SUGAR FREE 100MG/10ML UDC GT SCH ×2 (08:29→17:20)
[2018-11-19] MEDS: FAMOTIDINE 20MG/2ML VIAL IV SCH ×2 (08:29→21:47)
[2018-11-19] MEDS: DEXTROSE 5% WATER 1,000 ML IV SCH ×2 (10:57→21:49)
[2018-11-19 17:41] LABS: PHOSPHORUS 3.7 mg/dL (2.5-4.9)
[2018-11-20] VITALS (12 sets, daily range): BP systolic 96–189; BP diastolic 38–124
[2018-11-20] MEDS: IPRATROPIUM/ALBUTEROL 0.5-3(2.5)MG/3ML NEB HHN SCH ×5 (00:07→16:27)
[2018-11-20] MEDS: METOCLOPRAMIDE HCL 10MG/2ML VIAL IV SCH ×4 (00:11→18:17)
[2018-11-20] MEDS: DEXTROSE 5% WATER 1,000 ML IV SCH (06:14)
[2018-11-20] MEDS: DILTIAZEM HCL 60MG TABLET NG SCH ×3 (06:14→14:15)
[2018-11-20] MEDS ORDERED: ENOXAPARIN 40MG/0.4ML SYR SUBCUT SCH (09:00)
[2018-11-20] MEDS: FAMOTIDINE 20MG/2ML VIAL IV SCH ×2 (09:31→20:42)
[2018-11-20] MEDS: ASPIRIN 81MG TABLET NG SCH (09:32)
[2018-11-20] MEDS: DOCUSATE SODIUM SUGAR FREE 100MG/10ML UDC GT SCH ×2 (09:32→18:17)
[2018-11-20] MEDS: QUETIAPINE FUMARATE 25MG TABLET NG SCH ×2 (09:32→20:42)
[2018-11-20] MEDS: PREDNISONE 20MG TABLET GT SCH (09:38)
[2018-11-20] MEDS: CYCLOBENZAPRINE 10MG TABLET PO PRN (11:37)
[2018-11-20] MEDS ORDERED: ACETYLCYSTEINE 100MG/ML 10% VIAL 4ML INH SCH (22:00)
== END 2018-11-20 22:18 | DRG 3 ==
LOC: ER 10:04 → 6WST 11:36 → EDBEDREQTM 11:39 → EDBEDREQ 11:39 → ENRESERV 12:05 → MICUSO 11-03 22:30 → 5EST 11-10 23:50
PROVIDERS: ADMIT Internal Medicine; ATTEND Internal Medicine
PROC: 5A09357 Assistance with Respiratory Ventilation, Less than 24 Consecutive Hours, Continuous Positive Airway Pressure (ICD-10-PCS; 2018-11-02)
PROC: 5A09357 Assistance with Respiratory Ventilation, Less than 24 Consecutive Hours, Continuous Positive Airway Pressure (ICD-10-PCS; 2018-11-03)
PROC: 5A1955Z Respiratory Ventilation, Greater than 96 Consecutive Hours (ICD-10-PCS; principal; 2018-11-04)
PROC: 0BH17EZ Insertion of Endotracheal Airway into Trachea, Via Natural or Artificial Opening (ICD-10-PCS; 2018-11-04)
PROC: 0B110F4 Bypass Trachea to Cutaneous with Tracheostomy Device, Open Approach (ICD-10-PCS; 2018-11-09)
PROC: 0GBJ0ZZ Excision of Thyroid Gland Isthmus, Open Approach (ICD-10-PCS; 2018-11-09)
PROC: 0DH63UZ Insertion of Feeding Device into Stomach, Percutaneous Approach (ICD-10-PCS; 2018-11-10)
PROC: 0DB68ZX Excision of Stomach, Via Natural or Artificial Opening Endoscopic, Diagnostic (ICD-10-PCS; 2018-11-10)
DX: J96.20 Acute and chronic respiratory failure, unspecified whether with hypoxia or hypercapnia (principal); J44.1 Chronic obstructive pulmonary disease with (acute) exacerbation; R65.10 Systemic inflammatory response syndrome (SIRS) of non-infectious origin without acute organ dysfunction; E87.0 Hyperosmolality and hypernatremia; K56.7 Ileus, unspecified; I51.81 Takotsubo syndrome; R00.0 Tachycardia, unspecified; D72.821 Monocytosis (symptomatic); F41.9 Anxiety disorder, unspecified; G47.33 Obstructive sleep apnea (adult) (pediatric); I11.0 Hypertensive heart disease with heart failure; I25.10 Atherosclerotic heart disease of native coronary artery without angina pectoris; I50.9 Heart failure, unspecified; J06.9 Acute upper respiratory infection, unspecified; Z60.2 Problems related to living alone; M62.838 Other muscle spasm; K29.70 Gastritis, unspecified, without bleeding; R13.10 Dysphagia, unspecified; Z79.51 Long term (current) use of inhaled steroids; Z82.49 Family history of ischemic heart disease and other diseases of the circulatory system; Z87.891 Personal history of nicotine dependence; Z99.81 Dependence on supplemental oxygen; Z79.899 Other long term (current) drug therapy; Z79.82 Long term (current) use of aspirin
CPT/HCPCS: 31500; 36415; 36600; 71045; 74018; 76700; 80048; 80061; 82375; 82805; 83605; 83735; 83880; 84100; 84132; 84145; 84439; 84443; 84478; 84484; 85027; 88305; 88312; 88313; 93005; 93306; 93970; 94003; 94640; 94660; 96365; 96368; 96375; 97163; 97167; 97530; 99291; J0330; J0456; J1170; J1200; J1650; J1956; J2060; J2250; J2270; J2405; J2704; J2765; J2920; J2930; J3010; J3475; J3490; J7040; J7042; J7050; J7060; J7070; J7512; J7608; J7611; J7620; J7626